=== PATIENT | female | born 1935 | race Caucasian/White ===

== ENCOUNTER 2018-04-15 15:19 | Inpatient (IN) | payer OTHER ==
[~2018-04-15] VITALS: Ht 170.2 cm; Wt 111.7 kg
[~2018-04-15 15:19] MED LIST changes: -OMEP20ER PO; +Prilosec Otc20 MG PO
[2018-04-15] MEDS ORDERED: SITA50T2 PO (16:24)
[2018-04-16 05:01] LABS: Albumin, Blood 2.2 g/dL (3.4-5.0); Albumin/Globulin Ratio 0.6 (0.8-1.8); Bilirubin, Total 0.2 mg/dL (0.1-1.0); Calcium, Blood 8.1 mg/dL (8.5-10.1); Creatinine, Blood 1.43 mg/dL (0.40-1.00); Globulin, Blood 3.5 g/dL (2.2-4.0); Potassium, Blood 4.6 mmol/L (3.5-5.5); Total Protein, Blood 5.7 g/dL (6.4-8.2); Troponin I 0.022 ng/mL (0.000-0.040)
[2018-04-16 05:25] LABS: Hematocrit 35.6 % (33.0-51.0); Hemoglobin 11.2 g/dL (11.5-16.0); Mean Corpuscular HGB 31.9 pg (26.0-34.0); Mean Corpuscular HGB Conc 31.5 g/dL (31.5-36.5); Mean Corpuscular Volume 101 fL (80-100); Mean Platelet Volume 9.9 fL (9.1-12.4); Platelet Count 203 K/mm3 (150-400); RDW Coefficient Variation 13.4 % (11.7-14.2); RDW Standard Deviation 50.3 fL (35.1-46.3); Red Blood Cell Count 3.51 M/mm3 (3.80-5.20); White Blood Cell Count 7.69 K/mm3 (4.00-11.30)
[2018-04-18 04:45] LABS: BASOPHILS ABSOLUTE AUTO 0.06 K/mm3 (0.00-0.23); BASOPHILS PERCENT AUTO 1 % (0-2); EOSINOPHILS ABSOLUTE AUTO 0.32 K/mm3 (0.00-0.68); EOSINOPHILS PERCENT AUTO 4 % (0-6); Hematocrit 36.2 % (33.0-51.0); Hemoglobin 11.2 g/dL (11.5-16.0); IMMATURE GRAN ABSOLUTE AUTO 0.02 K/mm3 (0.00-0.10); IMMATURE GRAN PERCENT AUTO 0 % (0-1); LYMPHOCYTES ABSOLUTE AUTO 1.03 K/mm3 (0.84-5.20); LYMPHOCYTES PERCENT AUTO 14 % (21-46); MONOCYTES ABSOLUTE AUTO 1.23 K/mm3 (0.16-1.47); MONOCYTES PERCENT AUTO 16 % (4-13); Mean Corpuscular HGB 30.4 pg (26.0-34.0); Mean Corpuscular HGB Conc 30.9 g/dL (31.5-36.5); Mean Platelet Volume 9.7 fL (9.1-12.4); NEUTROPHILS ABSOLUTE AUTO 4.84 K/mm3 (1.96-9.15); NEUTROPHILS PERCENT AUTO 65 % (41-73); Platelet Count 218 K/mm3 (150-400); RDW Coefficient Variation 13.2 % (11.7-14.2); RDW Standard Deviation 47.3 fL (35.1-46.3); Red Blood Cell Count 3.69 M/mm3 (3.80-5.20)
[2018-04-18 04:48] LABS: Mean Corpuscular Volume 98 fL (80-100)
[2018-04-18 04:59] LABS: Bun/Creatinine Ratio 11.5 (12.0-20.0); Calcium, Blood 8.7 mg/dL (8.5-10.1); Creatinine, Blood 1.56 mg/dL (0.40-1.00); Potassium, Blood 3.9 mmol/L (3.5-5.5)
[2018-04-19 04:13] LABS: Bun/Creatinine Ratio 13.6 (12.0-20.0); Calcium, Blood 8.5 mg/dL (8.5-10.1); Creatinine, Blood 1.47 mg/dL (0.40-1.00); Potassium, Blood 4.1 mmol/L (3.5-5.5)
[2018-04-19 04:40] LABS: BASOPHILS ABSOLUTE AUTO 0.07 K/mm3 (0.00-0.23); BASOPHILS PERCENT AUTO 1 % (0-2); EOSINOPHILS ABSOLUTE AUTO 0.37 K/mm3 (0.00-0.68); EOSINOPHILS PERCENT AUTO 5 % (0-6); Hematocrit 36.6 % (33.0-51.0); Hemoglobin 11.5 g/dL (11.5-16.0); IMMATURE GRAN ABSOLUTE AUTO 0.03 K/mm3 (0.00-0.10); IMMATURE GRAN PERCENT AUTO 0 % (0-1); LYMPHOCYTES ABSOLUTE AUTO 1.12 K/mm3 (0.84-5.20); LYMPHOCYTES PERCENT AUTO 14 % (21-46); MONOCYTES ABSOLUTE AUTO 1.17 K/mm3 (0.16-1.47); MONOCYTES PERCENT AUTO 15 % (4-13); Mean Corpuscular HGB 31.2 pg (26.0-34.0); Mean Corpuscular HGB Conc 31.4 g/dL (31.5-36.5); Mean Corpuscular Volume 99 fL (80-100); Mean Platelet Volume 9.5 fL (9.1-12.4); NEUTROPHILS ABSOLUTE AUTO 5.14 K/mm3 (1.96-9.15); NEUTROPHILS PERCENT AUTO 65 % (41-73); Platelet Count 225 K/mm3 (150-400); RDW Coefficient Variation 13.2 % (11.7-14.2); RDW Standard Deviation 48.1 fL (35.1-46.3); Red Blood Cell Count 3.69 M/mm3 (3.80-5.20)
[2018-04-20 05:17] LABS: BASOPHILS ABSOLUTE AUTO 0.08 K/mm3 (0.00-0.23); BASOPHILS PERCENT AUTO 1 % (0-2); EOSINOPHILS ABSOLUTE AUTO 0.48 K/mm3 (0.00-0.68); EOSINOPHILS PERCENT AUTO 5 % (0-6); Hematocrit 37.9 % (33.0-51.0); Hemoglobin 11.6 g/dL (11.5-16.0); IMMATURE GRAN ABSOLUTE AUTO 0.04 K/mm3 (0.00-0.10); IMMATURE GRAN PERCENT AUTO 0 % (0-1); LYMPHOCYTES ABSOLUTE AUTO 1.42 K/mm3 (0.84-5.20); LYMPHOCYTES PERCENT AUTO 15 % (21-46); MONOCYTES ABSOLUTE AUTO 1.39 K/mm3 (0.16-1.47); MONOCYTES PERCENT AUTO 15 % (4-13); Mean Corpuscular HGB 30.1 pg (26.0-34.0); Mean Corpuscular HGB Conc 30.6 g/dL (31.5-36.5); Mean Corpuscular Volume 98 fL (80-100); Mean Platelet Volume 9.9 fL (9.1-12.4); NEUTROPHILS ABSOLUTE AUTO 6.15 K/mm3 (1.96-9.15); NEUTROPHILS PERCENT AUTO 64 % (41-73); Platelet Count 243 K/mm3 (150-400); RDW Coefficient Variation 13.2 % (11.7-14.2); RDW Standard Deviation 47.1 fL (35.1-46.3); Red Blood Cell Count 3.86 M/mm3 (3.80-5.20); White Blood Cell Count 9.56 K/mm3 (4.00-11.30)
[2018-04-20] MEDS ORDERED: BUME2 PO (14:02)
[2018-04-20] MEDS ORDERED: HYDCHL25 PO (14:03)
== END 2018-04-20 14:13 | DRG 291 ==
LOC: MEDS 15:19
PROVIDERS: Family Medicine; Student in an Organized Health Care Education/Training Program
DX: I13.0 Hypertensive heart and chronic kidney disease with heart failure and stage 1 through stage 4 chronic kidney disease, or unspecified chronic kidney disease (principal); J12.9 Viral pneumonia, unspecified; J96.01 Acute respiratory failure with hypoxia; I50.33 Acute on chronic diastolic (congestive) heart failure; E66.01 Morbid (severe) obesity due to excess calories; E78.5 Hyperlipidemia, unspecified; E03.9 Hypothyroidism, unspecified; E11.40 Type 2 diabetes mellitus with diabetic neuropathy, unspecified; K21.9 Gastro-esophageal reflux disease without esophagitis; E11.22 Type 2 diabetes mellitus with diabetic chronic kidney disease; N18.3 Chronic kidney disease, stage 3 (moderate); G47.33 Obstructive sleep apnea (adult) (pediatric); Z68.38 Body mass index [BMI] 38.0-38.9, adult
CPT/HCPCS: 36415; 71045; 80048; 80053; 82947; 83880; 84145; 84484; 85025; 85027; 93005; 93010; 93306; 94760; 94761; 97161; A9270; G8978; G8979; G8980; J0360; J1650; J1815; J2543; J7030

== ENCOUNTER → 2018-04-15 | Outpatient (CLI) | payer OTHER ==
[~2018-04-15] MED LIST: AMLO10 PO; ASPI325 PO; Amaryl1 MG PO; Azor 5-20 MG T1 EACH PO; BENAML10/40 PO; CEFP200; CEFP200 PO; CEPH500 PO; CIPR250 PO; CLOB.05TO; CORGARD; CORGARD80 MG PO; DONE5 PO; DULO30 PO; DULO60 PO; ESCI10 PO; GABA300 PO; GLYB5 PO; HYDACE10B PO; HYDACE5 PO; HYDR1TAB94 PO; JANUMET XR 50-1 EAC1 PO; LAMO100 PO; LANS15EC PO; LEVSOD50 PO; LOSA50 PO; MIRT15ST MM; NADO40 PO; NYST100P; NYST100P TOP; Norco 10-325 T1 EACH PO; OMEP20ER PO; Pravachol40 MG PO; SACC250C PO; SIMV10 PO; SIMV40 PO; SITA50T2 PO; VICODIN 5-3001 EACH PO
[2018-04-15 13:27] LABS: BASOPHILS ABSOLUTE AUTO 0.08 K/mm3 (0.00-0.23); BASOPHILS PERCENT AUTO 1 % (0-2); EOSINOPHILS ABSOLUTE AUTO 0.32 K/mm3 (0.00-0.68); EOSINOPHILS PERCENT AUTO 3 % (0-6); Hemoglobin 12.3 g/dL (11.5-16.0); IMMATURE GRAN ABSOLUTE AUTO 0.04 K/mm3 (0.00-0.10); IMMATURE GRAN PERCENT AUTO 0 % (0-1); LYMPHOCYTES ABSOLUTE AUTO 1.24 K/mm3 (0.84-5.20); LYMPHOCYTES PERCENT AUTO 12 % (21-46); MONOCYTES ABSOLUTE AUTO 1.13 K/mm3 (0.16-1.47); MONOCYTES PERCENT AUTO 11 % (4-13); Mean Corpuscular HGB 31.3 pg (26.0-34.0); Mean Corpuscular HGB Conc 30.8 g/dL (31.5-36.5); Mean Corpuscular Volume 102 fL (80-100); NEUTROPHILS PERCENT AUTO 73 % (41-73); Platelet Count 279 K/mm3 (150-400); RDW Coefficient Variation 13.8 % (11.7-14.2); RDW Standard Deviation 51.9 fL (35.1-46.3); Red Blood Cell Count 3.93 M/mm3 (3.80-5.20); White Blood Cell Count 10.51 K/mm3 (4.00-11.30)
[2018-04-15 13:42] LABS: Alanine Aminotransfer (ALT/SGP 15 U/L (12-78); Albumin, Blood 2.7 g/dL (3.4-5.0); Albumin/Globulin Ratio 0.6 (0.8-1.8); Alk Phos 73 U/L (40-126); Anion Gap 5 mmol/L (6-16); Aspartate Aminotrans (AST/SGOT 20 U/L (12-37); Bilirubin, Total 0.2 mg/dL (0.1-1.0); Blood Urea Nitrogen 20 mg/dL (8-24); Bun/Creatinine Ratio 12.5 (12.0-20.0); CO2, Blood 32 mmol/L (21-32); Calcium, Blood 8.8 mg/dL (8.5-10.1); Chloride, Blood 105 mmol/L (98-108); Globulin, Blood 4.2 g/dL (2.2-4.0); Glomerular Filtration Rate 31 (60-); Glucose, Blood 122 mg/dL (70-99); Sodium, Blood 142 mmol/L (136-145); Total Protein, Blood 6.9 g/dL (6.4-8.2); Troponin I <0.017 ng/mL (0.000-0.040)
== END ==
LOC: LAB SHORT 13:23 → LAB EV 13:23
PROVIDERS: Family Medicine
DX: R06.02 Shortness of breath (principal)
CPT/HCPCS: 80053; 83880; 84484; 85025

== ENCOUNTER 2018-04-22 14:27 | Inpatient (IN) | payer OTHER ==
[~2018-04-22] VITALS: Ht 172.7 cm; Wt 109.0 kg
[~2018-04-22 14:27] MED LIST changes: +BUME2 PO; +HYDCHL25 PO
[2018-04-22] MEDS ORDERED: ASPI81CH PO (14:54)
[2018-04-22] MEDS ORDERED: Januvia50 MG PO (14:55)
[2018-04-22 16:22] LABS: Alanine Aminotransfer (ALT/SGP 28 U/L (12-78); Albumin, Blood 2.6 g/dL (3.4-5.0); Albumin/Globulin Ratio 0.7 (0.8-1.8); Alk Phos 60 U/L (50-136); Anion Gap 8 mmol/L (6-16); Aspartate Aminotrans (AST/SGOT 38 U/L (12-37); Bilirubin, Total 0.2 mg/dL (0.1-1.0); Blood Urea Nitrogen 49 mg/dL (8-24); Bun/Creatinine Ratio 14.8 (12.0-20.0); CO2, Blood 30 mmol/L (21-32); Calcium, Blood 7.8 mg/dL (8.5-10.1); Chloride, Blood 101 mmol/L (98-108); Creatinine, Blood 3.32 mg/dL (0.40-1.00); Globulin, Blood 3.6 g/dL (2.2-4.0); Glomerular Filtration Rate 14 (60-); Glucose, Blood 146 mg/dL (70-99); Potassium, Blood 3.8 mmol/L (3.5-5.5); Sodium, Blood 139 mmol/L (136-145); Total Protein, Blood 6.2 g/dL (6.4-8.2); Troponin I <0.015 ng/mL (0.000-0.040)
[2018-04-22 18:27] LABS: PCO2 Arterial 61.7 mmHg (35-45); PO2 Arterial 62.2 mmHg (80-100); pH Blood Arterial 7.38 (7.35-7.45)
[2018-04-22 18:44] LABS: BASOPHILS ABSOLUTE AUTO 0.05 K/mm3 (0.00-0.23); BASOPHILS PERCENT AUTO 0 % (0-2); EOSINOPHILS ABSOLUTE AUTO 0.12 K/mm3 (0.00-0.68); EOSINOPHILS PERCENT AUTO 1 % (0-6); Hematocrit 39.8 % (33.0-51.0); Hemoglobin 12.4 g/dL (11.5-16.0); IMMATURE GRAN ABSOLUTE AUTO 0.04 K/mm3 (0.00-0.10); IMMATURE GRAN PERCENT AUTO 0 % (0-1); LYMPHOCYTES ABSOLUTE AUTO 0.34 K/mm3 (0.84-5.20); LYMPHOCYTES PERCENT AUTO 2 % (21-46); MONOCYTES ABSOLUTE AUTO 0.39 K/mm3 (0.16-1.47); MONOCYTES PERCENT AUTO 2 % (4-13); Mean Corpuscular HGB 31.2 pg (26.0-34.0); Mean Corpuscular HGB Conc 31.2 g/dL (31.5-36.5); Mean Corpuscular Volume 100 fL (80-100); Mean Platelet Volume 10.5 fL (9.1-12.4); NEUTROPHILS PERCENT AUTO 95 % (41-73); Platelet Count 256 K/mm3 (150-400); RDW Coefficient Variation 13.3 % (11.7-14.2); RDW Standard Deviation 49.4 fL (35.1-46.3); Red Blood Cell Count 3.98 M/mm3 (3.80-5.20); White Blood Cell Count 16.64 K/mm3 (4.00-11.30)
[2018-04-23 04:23] LABS: Bun/Creatinine Ratio 16.8 (12.0-20.0); Calcium, Blood 7.7 mg/dL (8.5-10.1); Creatinine, Blood 3.51 mg/dL (0.40-1.00); Potassium, Blood 3.5 mmol/L (3.5-5.5)
[2018-04-24 04:29] LABS: Hematocrit 31.3 % (33.0-51.0); Hemoglobin 9.7 g/dL (11.5-16.0); Mean Corpuscular HGB 31.4 pg (26.0-34.0); Mean Corpuscular Volume 101 fL (80-100); Mean Platelet Volume 10.5 fL (9.1-12.4); Platelet Count 198 K/mm3 (150-400); RDW Coefficient Variation 13.9 % (11.7-14.2); RDW Standard Deviation 51.6 fL (35.1-46.3); Red Blood Cell Count 3.09 M/mm3 (3.80-5.20); White Blood Cell Count 14.47 K/mm3 (4.00-11.30)
[2018-04-24 04:47] LABS: Albumin, Blood 2.2 g/dL (3.4-5.0); Anion Gap 6 mmol/L (6-16); Blood Urea Nitrogen 73 mg/dL (8-24); CO2, Blood 32 mmol/L (21-32); Calcium, Blood 7.4 mg/dL (8.5-10.1); Chloride, Blood 104 mmol/L (98-108); Creatinine, Blood 5.61 mg/dL (0.40-1.00); Glomerular Filtration Rate 8 (60-); Glucose, Blood 130 mg/dL (70-99); Magnesium, Blood 2.3 mg/dL (1.6-2.4); Phosphorus, Blood 5.3 mg/dL (2.5-4.9); Potassium, Blood 3.4 mmol/L (3.5-5.5); Sodium, Blood 142 mmol/L (136-145)
[2018-04-24 21:46] LABS: Albumin, Blood 2.2 g/dL (3.4-5.0); Anion Gap 8 mmol/L (6-16); Blood Urea Nitrogen 73 mg/dL (8-24); CO2, Blood 29 mmol/L (21-32); Calcium, Blood 7.7 mg/dL (8.5-10.1); Chloride, Blood 104 mmol/L (98-108); Glomerular Filtration Rate 8 (60-); Glucose, Blood 141 mg/dL (70-99); Magnesium, Blood 2.3 mg/dL (1.6-2.4); Phosphorus, Blood 5.2 mg/dL (2.5-4.9); Potassium, Blood 3.4 mmol/L (3.5-5.5); Sodium, Blood 141 mmol/L (136-145)
[2018-04-25 04:02] LABS: Hematocrit 30.5 % (33.0-51.0); Hemoglobin 9.5 g/dL (11.5-16.0)
[2018-04-25 04:26] LABS: Alanine Aminotransfer (ALT/SGP 14 U/L (12-78); Albumin, Blood 2.2 g/dL (3.4-5.0); Albumin/Globulin Ratio 0.7 (0.8-1.8); Alk Phos 52 U/L (50-136); Anion Gap 8 mmol/L (6-16); Aspartate Aminotrans (AST/SGOT 16 U/L (12-37); Bilirubin, Direct <0.1 mg/dL (0.0-0.3); Bilirubin, Indirect Unable to Calculate mg/dL (0.1-0.7); Bilirubin, Total 0.2 mg/dL (0.1-1.0); Blood Urea Nitrogen 76 mg/dL (8-24); Bun/Creatinine Ratio 13.7 (12.0-20.0); CO2, Blood 29 mmol/L (21-32); CPK Creatine Kinase 30 U/L (26-193); Calcium, Blood 7.7 mg/dL (8.5-10.1); Chloride, Blood 104 mmol/L (98-108); Creatinine, Blood 5.55 mg/dL (0.40-1.00); Globulin, Blood 3.3 g/dL (2.2-4.0); Glomerular Filtration Rate 8 (60-); Glucose, Blood 101 mg/dL (70-99); Magnesium, Blood 2.3 mg/dL (1.6-2.4); Potassium, Blood 3.3 mmol/L (3.5-5.5); Sodium, Blood 141 mmol/L (136-145); Total Protein, Blood 5.5 g/dL (6.4-8.2); Uric Acid, Blood 8.3 mg/dL (2.6-6.0)
[2018-04-25 23:45] LABS: Source, Urine Catheter
[2018-04-25 23:48] LABS: Bilirubin, Urine Neg (Neg); Blood, Urine 1+ (Neg); Glucose Qualitative, Urine Neg (Neg); Ketones, Urine Neg (Neg); Leukocyte Esterase, Urine 3+ (Neg); Nitrite, Urine Neg (Neg); Protein, Urine 2+ (Neg); Urobilinogen, Urine NORM (Normal)
[2018-04-25 23:52] LABS: Appearance, Urine Hazy (Clear); Color, Urine Pale Yellow (P-Yellow)
[2018-04-25 23:59] LABS: Amorphous Light (0-Heavy); Bacteria Few /hpf; Red Blood Cells, Urine 0-2 /hpf (0-2); Squamous Epithelial Cells Few /hpf (Few); White Blood Cells, Urine 25-50 /hpf (0-5)
[2018-04-26 05:46] LABS: Hemoglobin 9.9 g/dL (11.5-16.0); Mean Corpuscular HGB 31.7 pg (26.0-34.0); Mean Corpuscular HGB Conc 31.9 g/dL (31.5-36.5); Mean Corpuscular Volume 99 fL (80-100); Mean Platelet Volume 10.5 fL (9.1-12.4); Platelet Count 190 K/mm3 (150-400); RDW Coefficient Variation 13.2 % (11.7-14.2); RDW Standard Deviation 47.9 fL (35.1-46.3); Red Blood Cell Count 3.12 M/mm3 (3.80-5.20); White Blood Cell Count 10.25 K/mm3 (4.00-11.30)
[2018-04-26 06:03] LABS: Albumin, Blood 2.2 g/dL (3.4-5.0); Anion Gap 5 mmol/L (6-16); Blood Urea Nitrogen 71 mg/dL (8-24); Bun/Creatinine Ratio 14.1 (12.0-20.0); CO2, Blood 28 mmol/L (21-32); Calcium, Blood 7.9 mg/dL (8.5-10.1); Chloride, Blood 109 mmol/L (98-108); Creatinine, Blood 5.04 mg/dL (0.40-1.00); Glomerular Filtration Rate 9 (60-); Glucose, Blood 101 mg/dL (70-99); Magnesium, Blood 2.5 mg/dL (1.6-2.4); Phosphorus, Blood 4.4 mg/dL (2.5-4.9); Potassium, Blood 3.5 mmol/L (3.5-5.5); Sodium, Blood 142 mmol/L (136-145)
[2018-04-26 20:02] LABS: Source, Urine Clean Catch
[2018-04-26 20:08] LABS: Appearance, Urine Hazy (Clear); Bilirubin, Urine Neg (Neg); Blood, Urine 1+ (Neg); Color, Urine Yellow (P-Yellow); Glucose Qualitative, Urine Neg (Neg); Ketones, Urine Neg (Neg); Leukocyte Esterase, Urine 3+ (Neg); Nitrite, Urine Neg (Neg); Protein, Urine 2+ (Neg); Specific Gravity, Urine 1.015 (1.003-1.022); Urobilinogen, Urine NORM (Normal)
[2018-04-26 20:22] LABS: Squamous Epithelial Cells Rare /hpf (Few); White Blood Cells, Urine 25-50 /hpf (0-5)
[2018-04-26 20:23] LABS: Bacteria Rare /hpf; Yeast/Fungi Urine Rare /hpf
[2018-04-27 06:07] LABS: Hematocrit 33.5 % (33.0-51.0); Hemoglobin 10.6 g/dL (11.5-16.0)
[2018-04-27 06:26] LABS: Albumin, Blood 2.4 g/dL (3.4-5.0); Anion Gap 7 mmol/L (6-16); Blood Urea Nitrogen 62 mg/dL (8-24); Bun/Creatinine Ratio 14.9 (12.0-20.0); CO2, Blood 26 mmol/L (21-32); Calcium, Blood 8.6 mg/dL (8.5-10.1); Chloride, Blood 110 mmol/L (98-108); Creatinine, Blood 4.15 mg/dL (0.40-1.00); Glomerular Filtration Rate 11 (60-); Glucose, Blood 111 mg/dL (70-99); Magnesium, Blood 2.5 mg/dL (1.6-2.4); Phosphorus, Blood 3.8 mg/dL (2.5-4.9); Potassium, Blood 3.6 mmol/L (3.5-5.5); Sodium, Blood 143 mmol/L (136-145)
[2018-04-28 04:34] LABS: BASOPHILS ABSOLUTE AUTO 0.07 K/mm3 (0.00-0.23); BASOPHILS PERCENT AUTO 1 % (0-2); EOSINOPHILS ABSOLUTE AUTO 0.43 K/mm3 (0.00-0.68); EOSINOPHILS PERCENT AUTO 5 % (0-6); Hematocrit 31.9 % (33.0-51.0); Hemoglobin 9.9 g/dL (11.5-16.0); IMMATURE GRAN PERCENT AUTO 2 % (0-1); LYMPHOCYTES ABSOLUTE AUTO 1.53 K/mm3 (0.84-5.20); LYMPHOCYTES PERCENT AUTO 16 % (21-46); MONOCYTES ABSOLUTE AUTO 1.03 K/mm3 (0.16-1.47); MONOCYTES PERCENT AUTO 11 % (4-13); Mean Corpuscular HGB 29.9 pg (26.0-34.0); Mean Platelet Volume 10.4 fL (9.1-12.4); NEUTROPHILS ABSOLUTE AUTO 6.11 K/mm3 (1.96-9.15); NEUTROPHILS PERCENT AUTO 65 % (41-73); Platelet Count 239 K/mm3 (150-400); RDW Coefficient Variation 13.1 % (11.7-14.2); RDW Standard Deviation 46.5 fL (35.1-46.3); Red Blood Cell Count 3.31 M/mm3 (3.80-5.20); White Blood Cell Count 9.37 K/mm3 (4.00-11.30)
[2018-04-28 04:53] LABS: Mean Corpuscular Volume 96 fL (80-100)
[2018-04-28 04:54] LABS: Alanine Aminotransfer (ALT/SGP 17 U/L (12-78); Albumin, Blood 2.2 g/dL (3.4-5.0); Albumin/Globulin Ratio 0.7 (0.8-1.8); Alk Phos 43 U/L (50-136); Anion Gap 5 mmol/L (6-16); Aspartate Aminotrans (AST/SGOT 17 U/L (12-37); Bilirubin, Total 0.2 mg/dL (0.1-1.0); Blood Urea Nitrogen 54 mg/dL (8-24); Bun/Creatinine Ratio 14.9 (12.0-20.0); CO2, Blood 29 mmol/L (21-32); Calcium, Blood 8.1 mg/dL (8.5-10.1); Chloride, Blood 112 mmol/L (98-108); Creatinine, Blood 3.63 mg/dL (0.40-1.00); Globulin, Blood 3.3 g/dL (2.2-4.0); Glomerular Filtration Rate 13 (60-); Glucose, Blood 106 mg/dL (70-99); Magnesium, Blood 2.4 mg/dL (1.6-2.4); Phosphorus, Blood 3.2 mg/dL (2.5-4.9); Potassium, Blood 3.6 mmol/L (3.5-5.5); Sodium, Blood 146 mmol/L (136-145); Total Protein, Blood 5.5 g/dL (6.4-8.2)
[2018-04-29 04:59] LABS: Hematocrit 32.7 % (33.0-51.0); Hemoglobin 10.3 g/dL (11.5-16.0)
[2018-04-29 05:14] LABS: Albumin, Blood 2.4 g/dL (3.4-5.0); Anion Gap 7 mmol/L (6-16); Blood Urea Nitrogen 53 mg/dL (8-24); Bun/Creatinine Ratio 16.4 (12.0-20.0); CO2, Blood 29 mmol/L (21-32); Calcium, Blood 8.2 mg/dL (8.5-10.1); Chloride, Blood 111 mmol/L (98-108); Creatinine, Blood 3.24 mg/dL (0.40-1.00); Glomerular Filtration Rate 15 (60-); Glucose, Blood 136 mg/dL (70-99); Magnesium, Blood 2.4 mg/dL (1.6-2.4); Potassium, Blood 3.6 mmol/L (3.5-5.5); Sodium, Blood 147 mmol/L (136-145)
[2018-04-29 08:02] LABS: Protein, Urine Quantitative 53.2 mg/dL (0.0-11.9)
[2018-04-30 04:55] LABS: BASOPHILS ABSOLUTE AUTO 0.08 K/mm3 (0.00-0.23); BASOPHILS PERCENT AUTO 1 % (0-2); EOSINOPHILS ABSOLUTE AUTO 0.54 K/mm3 (0.00-0.68); EOSINOPHILS PERCENT AUTO 4 % (0-6); Hematocrit 34.5 % (33.0-51.0); IMMATURE GRAN ABSOLUTE AUTO 0.39 K/mm3 (0.00-0.10); IMMATURE GRAN PERCENT AUTO 3 % (0-1); LYMPHOCYTES PERCENT AUTO 14 % (21-46); MONOCYTES PERCENT AUTO 10 % (4-13); Mean Corpuscular HGB 30.8 pg (26.0-34.0); Mean Corpuscular HGB Conc 31.9 g/dL (31.5-36.5); Mean Corpuscular Volume 97 fL (80-100); Mean Platelet Volume 10.2 fL (9.1-12.4); NEUTROPHILS PERCENT AUTO 68 % (41-73); Platelet Count 289 K/mm3 (150-400); RDW Coefficient Variation 13.4 % (11.7-14.2); RDW Standard Deviation 48.3 fL (35.1-46.3); Red Blood Cell Count 3.57 M/mm3 (3.80-5.20); White Blood Cell Count 12.71 K/mm3 (4.00-11.30)
[2018-04-30 05:23] LABS: Albumin, Blood 2.7 g/dL (3.4-5.0); Anion Gap 7 mmol/L (6-16); Blood Urea Nitrogen 42 mg/dL (8-24); CO2, Blood 28 mmol/L (21-32); Calcium, Blood 8.7 mg/dL (8.5-10.1); Chloride, Blood 108 mmol/L (98-108); Creatinine, Blood 2.62 mg/dL (0.40-1.00); Glomerular Filtration Rate 19 (60-); Glucose, Blood 142 mg/dL (70-99); Magnesium, Blood 2.3 mg/dL (1.6-2.4); Phosphorus, Blood 2.5 mg/dL (2.5-4.9); Potassium, Blood 3.3 mmol/L (3.5-5.5); Sodium, Blood 143 mmol/L (136-145)
[2018-04-30 14:11] LABS: A/G RATIO 1.5 (0.7-1.7); ALBUMIN 2.9 g/dL (2.9-4.4); ALPHA-1-GLOBULIN 0.2 g/dL (0.0-0.4); ALPHA-2-GLOBULIN 0.7 g/dL (0.4-1.0); BETA GLOBULIN 0.6 g/dL (0.7-1.3); GAMMA GLOBULIN 0.5 g/dL (0.4-1.8); IMMUNOGLOBULIN A, QN, SERUM 119 mg/dL (64-422); IMMUNOGLOBULIN G, QN, SERUM 577 mg/dL (700-1600); IMMUNOGLOBULIN M, QN, SERUM 112 mg/dL (26-217); M-SPIKE Not Observed g/dL (Not Observed); PROTEIN, TOTAL, SERUM 4.9 g/dL (6.0-8.5)
[2018-05-01 04:38] LABS: BASOPHILS ABSOLUTE AUTO 0.09 K/mm3 (0.00-0.23); BASOPHILS PERCENT AUTO 1 % (0-2); EOSINOPHILS ABSOLUTE AUTO 0.47 K/mm3 (0.00-0.68); EOSINOPHILS PERCENT AUTO 5 % (0-6); Hematocrit 33.8 % (33.0-51.0); Hemoglobin 10.9 g/dL (11.5-16.0); IMMATURE GRAN ABSOLUTE AUTO 0.42 K/mm3 (0.00-0.10); IMMATURE GRAN PERCENT AUTO 4 % (0-1); LYMPHOCYTES ABSOLUTE AUTO 1.55 K/mm3 (0.84-5.20); LYMPHOCYTES PERCENT AUTO 16 % (21-46); MONOCYTES ABSOLUTE AUTO 1.03 K/mm3 (0.16-1.47); MONOCYTES PERCENT AUTO 11 % (4-13); Mean Corpuscular HGB 30.9 pg (26.0-34.0); Mean Corpuscular HGB Conc 32.2 g/dL (31.5-36.5); Mean Corpuscular Volume 96 fL (80-100); Mean Platelet Volume 9.9 fL (9.1-12.4); NEUTROPHILS ABSOLUTE AUTO 6.11 K/mm3 (1.96-9.15); NEUTROPHILS PERCENT AUTO 63 % (41-73); Platelet Count 308 K/mm3 (150-400); RDW Coefficient Variation 13.8 % (11.7-14.2); Red Blood Cell Count 3.53 M/mm3 (3.80-5.20); White Blood Cell Count 9.67 K/mm3 (4.00-11.30)
[2018-05-01 05:00] LABS: Alanine Aminotransfer (ALT/SGP 17 U/L (12-78); Albumin, Blood 2.6 g/dL (3.4-5.0); Albumin/Globulin Ratio 0.7 (0.8-1.8); Alk Phos 51 U/L (50-136); Anion Gap 5 mmol/L (6-16); Aspartate Aminotrans (AST/SGOT 21 U/L (12-37); Bilirubin, Total 0.3 mg/dL (0.1-1.0); Blood Urea Nitrogen 33 mg/dL (8-24); Bun/Creatinine Ratio 14.3 (12.0-20.0); CO2, Blood 29 mmol/L (21-32); Calcium, Blood 8.5 mg/dL (8.5-10.1); Chloride, Blood 109 mmol/L (98-108); Globulin, Blood 3.5 g/dL (2.2-4.0); Glomerular Filtration Rate 22 (60-); Glucose, Blood 134 mg/dL (70-99); Magnesium, Blood 2.2 mg/dL (1.6-2.4); Phosphorus, Blood 2.6 mg/dL (2.5-4.9); Potassium, Blood 3.5 mmol/L (3.5-5.5); Sodium, Blood 143 mmol/L (136-145); Total Protein, Blood 6.1 g/dL (6.4-8.2)
[2018-05-01 07:10] LABS: ANTIGLOMERULAR BM AB 10 units (0-20)
[2018-05-02 06:36] LABS: Albumin, Blood 2.7 g/dL (3.4-5.0); Anion Gap 9 mmol/L (6-16); Blood Urea Nitrogen 26 mg/dL (8-24); Bun/Creatinine Ratio 13.1 (12.0-20.0); CO2, Blood 24 mmol/L (21-32); Calcium, Blood 8.5 mg/dL (8.5-10.1); Chloride, Blood 113 mmol/L (98-108); Creatinine, Blood 1.98 mg/dL (0.40-1.00); Glomerular Filtration Rate 26 (60-); Glucose, Blood 140 mg/dL (70-99); Magnesium, Blood 2.1 mg/dL (1.6-2.4); Phosphorus, Blood 3.4 mg/dL (2.5-4.9); Potassium, Blood 4.6 mmol/L (3.5-5.5); Sodium, Blood 146 mmol/L (136-145)
[2018-05-02 07:14] LABS: Hematocrit 36.2 % (33.0-51.0); Hemoglobin 11.3 g/dL (11.5-16.0)
[2018-05-03 05:41] LABS: Hematocrit 33.3 % (33.0-51.0); Hemoglobin 10.3 g/dL (11.5-16.0)
[2018-05-03 06:04] LABS: Albumin, Blood 2.6 g/dL (3.4-5.0); Anion Gap 6 mmol/L (6-16); Blood Urea Nitrogen 23 mg/dL (8-24); Bun/Creatinine Ratio 10.7 (12.0-20.0); CO2, Blood 27 mmol/L (21-32); Calcium, Blood 8.7 mg/dL (8.5-10.1); Chloride, Blood 114 mmol/L (98-108); Creatinine, Blood 2.15 mg/dL (0.40-1.00); Glomerular Filtration Rate 23 (60-); Glucose, Blood 131 mg/dL (70-99); Magnesium, Blood 2.1 mg/dL (1.6-2.4); Phosphorus, Blood 4.4 mg/dL (2.5-4.9); Sodium, Blood 147 mmol/L (136-145)
[2018-05-04 06:16] LABS: Hematocrit 31.8 % (33.0-51.0); Hemoglobin 9.8 g/dL (11.5-16.0)
[2018-05-04 06:41] LABS: Albumin, Blood 2.6 g/dL (3.4-5.0); Anion Gap 6 mmol/L (6-16); Blood Urea Nitrogen 23 mg/dL (8-24); CO2, Blood 30 mmol/L (21-32); Calcium, Blood 8.5 mg/dL (8.5-10.1); Chloride, Blood 113 mmol/L (98-108); Glomerular Filtration Rate 22 (60-); Glucose, Blood 143 mg/dL (70-99); Phosphorus, Blood 4.1 mg/dL (2.5-4.9); Potassium, Blood 3.7 mmol/L (3.5-5.5); Sodium, Blood 149 mmol/L (136-145)
[2018-05-04 19:41] LABS: Protein, Urine Quantitative 95.7 mg/dL (0.0-11.9)
[2018-05-05 05:04] LABS: Hematocrit 31.9 % (33.0-51.0); Hemoglobin 9.8 g/dL (11.5-16.0)
[2018-05-05 05:24] LABS: Albumin, Blood 2.6 g/dL (3.4-5.0); Anion Gap 4 mmol/L (6-16); Blood Urea Nitrogen 22 mg/dL (8-24); Bun/Creatinine Ratio 9.9 (12.0-20.0); CO2, Blood 33 mmol/L (21-32); Calcium, Blood 8.4 mg/dL (8.5-10.1); Chloride, Blood 112 mmol/L (98-108); Creatinine, Blood 2.23 mg/dL (0.40-1.00); Glomerular Filtration Rate 22 (60-); Glucose, Blood 143 mg/dL (70-99); Magnesium, Blood 2.2 mg/dL (1.6-2.4); Phosphorus, Blood 4.1 mg/dL (2.5-4.9); Potassium, Blood 3.8 mmol/L (3.5-5.5); Sodium, Blood 149 mmol/L (136-145)
[2018-05-06 05:51] LABS: Hematocrit 33.3 % (33.0-51.0); Hemoglobin 10.1 g/dL (11.5-16.0)
[2018-05-06 06:12] LABS: Albumin, Blood 2.7 g/dL (3.4-5.0); Anion Gap 4 mmol/L (6-16); Blood Urea Nitrogen 22 mg/dL (8-24); Bun/Creatinine Ratio 9.4 (12.0-20.0); CO2, Blood 33 mmol/L (21-32); Calcium, Blood 8.6 mg/dL (8.5-10.1); Chloride, Blood 111 mmol/L (98-108); Creatinine, Blood 2.34 mg/dL (0.40-1.00); Glomerular Filtration Rate 21 (60-); Glucose, Blood 144 mg/dL (70-99); Magnesium, Blood 2.3 mg/dL (1.6-2.4); Phosphorus, Blood 3.9 mg/dL (2.5-4.9); Potassium, Blood 3.8 mmol/L (3.5-5.5); Sodium, Blood 148 mmol/L (136-145)
[2018-05-06 13:07] LABS: ANA DIRECT Negative (Negative); ANTIMYELOPEROXIDASE (MPO) ABS <9.0 U/mL (0.0-9.0); ANTIPROTEINASE 3 (PR-3) ABS <3.5 U/mL (0.0-3.5); ATYPICAL PANCA <1:20 titer (Neg:<1:20); CYTOPLASMIC (C-ANCA) <1:20 titer (Neg:<1:20); PERINUCLEAR (P-ANCA) <1:20 titer (Neg:<1:20)
[2018-05-06 15:06] LABS: M-SPIKE, % Not Observed % (Not Observed); PROTEIN,TOTAL,URINE 88.8 mg/dL (Not Estab.)
[2018-05-07 04:59] LABS: Hemoglobin 9.9 g/dL (11.5-16.0)
[2018-05-07 05:15] LABS: Albumin, Blood 2.7 g/dL (3.4-5.0); Anion Gap 5 mmol/L (6-16); Blood Urea Nitrogen 25 mg/dL (8-24); Bun/Creatinine Ratio 10.3 (12.0-20.0); CO2, Blood 33 mmol/L (21-32); Calcium, Blood 8.4 mg/dL (8.5-10.1); Chloride, Blood 110 mmol/L (98-108); Creatinine, Blood 2.43 mg/dL (0.40-1.00); Glomerular Filtration Rate 20 (60-); Glucose, Blood 142 mg/dL (70-99); Magnesium, Blood 2.5 mg/dL (1.6-2.4); Phosphorus, Blood 3.8 mg/dL (2.5-4.9); Potassium, Blood 3.9 mmol/L (3.5-5.5); Sodium, Blood 148 mmol/L (136-145)
[2018-05-07 08:17] LABS: ALDOS/RENIN RATIO <2.2 (0.0-30.0); ALDOSTERONE <1.0 ng/dL (0.0-30.0)
[2018-05-08 05:28] LABS: Hemoglobin 10.3 g/dL (11.5-16.0)
[2018-05-08 05:46] LABS: Albumin, Blood 2.7 g/dL (3.4-5.0); Anion Gap 5 mmol/L (6-16); Blood Urea Nitrogen 28 mg/dL (8-24); Bun/Creatinine Ratio 12.2 (12.0-20.0); CO2, Blood 34 mmol/L (21-32); Calcium, Blood 8.4 mg/dL (8.5-10.1); Chloride, Blood 109 mmol/L (98-108); Creatinine, Blood 2.29 mg/dL (0.40-1.00); Glomerular Filtration Rate 22 (60-); Glucose, Blood 151 mg/dL (70-99); Magnesium, Blood 2.5 mg/dL (1.6-2.4); Phosphorus, Blood 3.3 mg/dL (2.5-4.9); Potassium, Blood 3.7 mmol/L (3.5-5.5); Sodium, Blood 148 mmol/L (136-145)
[2018-05-08 18:07] LABS: METANEPHRINE, UR 53 ug/L (Undefined); NORMETANEPHRINE, UR 328 ug/L (Undefined)
[2018-05-09 06:04] LABS: BASOPHILS PERCENT AUTO 1 % (0-2); EOSINOPHILS ABSOLUTE AUTO 0.23 K/mm3 (0.00-0.68); EOSINOPHILS PERCENT AUTO 2 % (0-6); Hematocrit 36.1 % (33.0-51.0); Hemoglobin 11.5 g/dL (11.5-16.0); IMMATURE GRAN ABSOLUTE AUTO 0.03 K/mm3 (0.00-0.10); IMMATURE GRAN PERCENT AUTO 0 % (0-1); LYMPHOCYTES ABSOLUTE AUTO 1.25 K/mm3 (0.84-5.20); LYMPHOCYTES PERCENT AUTO 10 % (21-46); MONOCYTES ABSOLUTE AUTO 0.98 K/mm3 (0.16-1.47); MONOCYTES PERCENT AUTO 8 % (4-13); Mean Corpuscular HGB 31.8 pg (26.0-34.0); Mean Corpuscular HGB Conc 31.9 g/dL (31.5-36.5); Mean Platelet Volume 10.7 fL (9.1-12.4); NEUTROPHILS ABSOLUTE AUTO 9.97 K/mm3 (1.96-9.15); NEUTROPHILS PERCENT AUTO 79 % (41-73); Platelet Count 202 K/mm3 (150-400); RDW Coefficient Variation 14.4 % (11.7-14.2); RDW Standard Deviation 52.1 fL (35.1-46.3); Red Blood Cell Count 3.62 M/mm3 (3.80-5.20); White Blood Cell Count 12.56 K/mm3 (4.00-11.30)
[2018-05-09 06:08] LABS: Mean Corpuscular Volume 100 fL (80-100)
[2018-05-09 06:15] LABS: Alanine Aminotransfer (ALT/SGP 15 U/L (12-78); Albumin, Blood 2.9 g/dL (3.4-5.0); Albumin/Globulin Ratio 0.8 (0.8-1.8); Alk Phos 61 U/L (50-136); Anion Gap 5 mmol/L (6-16); Aspartate Aminotrans (AST/SGOT 16 U/L (12-37); Bilirubin, Total 0.2 mg/dL (0.1-1.0); Blood Urea Nitrogen 26 mg/dL (8-24); Bun/Creatinine Ratio 11.9 (12.0-20.0); CO2, Blood 34 mmol/L (21-32); Calcium, Blood 8.7 mg/dL (8.5-10.1); Chloride, Blood 107 mmol/L (98-108); Creatinine, Blood 2.18 mg/dL (0.40-1.00); Globulin, Blood 3.6 g/dL (2.2-4.0); Glomerular Filtration Rate 23 (60-); Glucose, Blood 181 mg/dL (70-99); Magnesium, Blood 2.5 mg/dL (1.6-2.4); Phosphorus, Blood 3.3 mg/dL (2.5-4.9); Potassium, Blood 3.4 mmol/L (3.5-5.5); Sodium, Blood 146 mmol/L (136-145); Total Protein, Blood 6.5 g/dL (6.4-8.2); Triglycerides 103 mg/dL (30-160)
[2018-05-09 09:09] LABS: CREATININE, URINE 25.4 mg/dL (Not Estab.)
[2018-05-10 05:51] LABS: Hematocrit 34.9 % (33.0-51.0)
[2018-05-10 06:14] LABS: Albumin, Blood 2.8 g/dL (3.4-5.0); Anion Gap 8 mmol/L (6-16); Blood Urea Nitrogen 24 mg/dL (8-24); Bun/Creatinine Ratio 11.7 (12.0-20.0); CO2, Blood 33 mmol/L (21-32); Calcium, Blood 8.7 mg/dL (8.5-10.1); Chloride, Blood 105 mmol/L (98-108); Creatinine, Blood 2.05 mg/dL (0.40-1.00); Glomerular Filtration Rate 25 (60-); Glucose, Blood 177 mg/dL (70-99); Magnesium, Blood 2.6 mg/dL (1.6-2.4); Phosphorus, Blood 3.2 mg/dL (2.5-4.9); Potassium, Blood 3.5 mmol/L (3.5-5.5); Sodium, Blood 146 mmol/L (136-145)
[2018-05-11 04:33] LABS: Hematocrit 29.5 % (33.0-51.0); Hemoglobin 9.1 g/dL (11.5-16.0)
[2018-05-11 04:50] LABS: Albumin, Blood 2.6 g/dL (3.4-5.0); Anion Gap 5 mmol/L (6-16); Blood Urea Nitrogen 26 mg/dL (8-24); Bun/Creatinine Ratio 12.4 (12.0-20.0); CO2, Blood 36 mmol/L (21-32); Calcium, Blood 8.4 mg/dL (8.5-10.1); Chloride, Blood 104 mmol/L (98-108); Creatinine, Blood 2.09 mg/dL (0.40-1.00); Glomerular Filtration Rate 24 (60-); Glucose, Blood 143 mg/dL (70-99); Magnesium, Blood 2.6 mg/dL (1.6-2.4); Phosphorus, Blood 3.5 mg/dL (2.5-4.9); Potassium, Blood 3.4 mmol/L (3.5-5.5); Sodium, Blood 145 mmol/L (136-145)
[2018-05-12 04:51] LABS: Hematocrit 27.6 % (33.0-51.0); Hemoglobin 8.7 g/dL (11.5-16.0)
[2018-05-12 05:20] LABS: Albumin, Blood 2.4 g/dL (3.4-5.0); Anion Gap 7 mmol/L (6-16); Blood Urea Nitrogen 29 mg/dL (8-24); Bun/Creatinine Ratio 12.8 (12.0-20.0); CO2, Blood 33 mmol/L (21-32); Calcium, Blood 8.2 mg/dL (8.5-10.1); Chloride, Blood 100 mmol/L (98-108); Creatinine, Blood 2.26 mg/dL (0.40-1.00); Glomerular Filtration Rate 22 (60-); Glucose, Blood 143 mg/dL (70-99); Magnesium, Blood 2.5 mg/dL (1.6-2.4); Phosphorus, Blood 3.5 mg/dL (2.5-4.9); Potassium, Blood 3.4 mmol/L (3.5-5.5); Sodium, Blood 140 mmol/L (136-145)
[2018-05-13 04:27] LABS: Hematocrit 27.2 % (33.0-51.0); Hemoglobin 8.6 g/dL (11.5-16.0)
[2018-05-13 04:47] LABS: Albumin, Blood 2.4 g/dL (3.4-5.0); Anion Gap 7 mmol/L (6-16); Blood Urea Nitrogen 34 mg/dL (8-24); CO2, Blood 32 mmol/L (21-32); Calcium, Blood 8.1 mg/dL (8.5-10.1); Chloride, Blood 99 mmol/L (98-108); Creatinine, Blood 2.62 mg/dL (0.40-1.00); Glomerular Filtration Rate 19 (60-); Glucose, Blood 160 mg/dL (70-99); Magnesium, Blood 2.7 mg/dL (1.6-2.4); Phosphorus, Blood 4.1 mg/dL (2.5-4.9); Potassium, Blood 3.7 mmol/L (3.5-5.5); Sodium, Blood 138 mmol/L (136-145)
[2018-05-13] MEDS ORDERED: CLON.3TP TD (13:02)
[2018-05-13] MEDS ORDERED: ACET325 PO (13:03)
[2018-05-13] MEDS ORDERED: HYDRA50 PO (13:04)
[2018-05-13] MEDS ORDERED: Aranesp40 MCG/0.4 INJ (13:05)
[2018-05-13] MEDS ORDERED: LOPE2C PO (13:05)
[2018-05-13] MEDS ORDERED: ISODIN20 PO (13:06)
[2018-05-13] MEDS ORDERED: POTA20LUD PO (13:07)
[2018-05-13] MEDS ORDERED: [UNRECOGNIZED DRUG - OTHER] PT (13:08)
== END 2018-05-13 13:14 | disposition home or self-care (01) | DRG 177 ==
LOC: ER 14:27 → MEDS 18:15 → PCU 18:15 → MEDS 04-24 16:41 → PCU 05-08 16:13
PROVIDERS: Internal Medicine; Internal Medicine Endocrinology, Diabetes & Metabolism; Internal Medicine Nephrology; Student in an Organized Health Care Education/Training Program
PROC: 0DH63UZ Insertion of Feeding Device into Stomach, Percutaneous Approach (ICD-10-PCS; 2018-05-08)
PROC: 0DJ08ZZ Inspection of Upper Intestinal Tract, Via Natural or Artificial Opening Endoscopic (ICD-10-PCS; principal; 2018-05-08 08:15)
DX: J69.0 Pneumonitis due to inhalation of food and vomit (principal); J96.21 Acute and chronic respiratory failure with hypoxia; I50.33 Acute on chronic diastolic (congestive) heart failure; E87.2 Acidosis; I13.0 Hypertensive heart and chronic kidney disease with heart failure and stage 1 through stage 4 chronic kidney disease, or unspecified chronic kidney disease; N17.9 Acute kidney failure, unspecified; Z68.41 Body mass index [BMI] 40.0-44.9, adult; I69.354 Hemiplegia and hemiparesis following cerebral infarction affecting left non-dominant side; F31.81 Bipolar II disorder; E87.0 Hyperosmolality and hypernatremia; J15.9 Unspecified bacterial pneumonia; J15.8 Pneumonia due to other specified bacteria; G47.33 Obstructive sleep apnea (adult) (pediatric); E11.22 Type 2 diabetes mellitus with diabetic chronic kidney disease; E11.65 Type 2 diabetes mellitus with hyperglycemia; N18.3 Chronic kidney disease, stage 3 (moderate); I50.9 Heart failure, unspecified; M79.7 Fibromyalgia; K21.9 Gastro-esophageal reflux disease without esophagitis; E03.9 Hypothyroidism, unspecified; Q07.00 Arnold-Chiari syndrome without spina bifida or hydrocephalus; D63.1 Anemia in chronic kidney disease; Y95 Nosocomial condition; F03.90 Unspecified dementia, unspecified severity, without behavioral disturbance, psychotic disturbance, mood disturbance, and anxiety; Z87.440 Personal history of urinary (tract) infections; N28.89 Other specified disorders of kidney and ureter; E11.42 Type 2 diabetes mellitus with diabetic polyneuropathy; I69.920 Aphasia following unspecified cerebrovascular disease; N28.1 Cyst of kidney, acquired
CPT/HCPCS: 36415; 36416; 36600; 71046; 74176; 74230; 76770; 80048; 80053; 80069; 81001; 81050; 82088; 82248; 82530; 82550; 82570; 82784; 82803; 82947; 83516; 83520; 83605; 83735; 83835; 83880; 84100; 84145; 84156; 84165; 84166; 84244; 84443; 84478; 84484; 84550; 84585; 85014; 85018; 85025; 85027; 86038; 86256; 86334; 86335; 87040; 87086; 87493; 92526; 92610; 92611; 93005; 93010; 93975; 96365; 96367; 97110; 97116; 97162; 97530; 99285-25; C1769; G8978; G8979; G8996; G8997; G8998; J0360; J0456; J0690; J0881; J1650; J1940; J2543; J3480; J7030; J7050; J7120; P9041

== ENCOUNTER → 2018-09-10 | Outpatient (CLI) | payer OTHER ==
[~2018-09-10] MED LIST changes: +ACET325 PO; +ASPI81CH PO; +Aranesp40 MCG/0.4 INJ; +CLON.3TP TD; +HYDRA50 PO; +ISODIN20 PO; +Januvia50 MG PO; +LOPE2C PO; +POTA20LUD PO; +[UNRECOGNIZED DRUG - OTHER] PT
[2018-09-10 12:10] LABS: Bilirubin, Urine Neg (Neg); Blood, Urine 1+ (Neg); Glucose Qualitative, Urine Neg (Neg); Ketones, Urine Neg (Neg); Leukocyte Esterase, Urine 1+ (Neg); Nitrite, Urine Neg (Neg); Protein, Urine 3+ (Neg); Specific Gravity, Urine 1.015 (1.003-1.022); Urobilinogen, Urine NORM (Normal)
[2018-09-10 12:26] LABS: Appearance, Urine Clear (Clear); Color, Urine Yellow (P-Yellow)
[2018-09-10 12:27] LABS: Bacteria Mod /hpf; Squamous Epithelial Cells Few /hpf (Few)
== END | disposition home or self-care (01) ==
LOC: LAB SHORT 10:26 → LAB 10:26
PROVIDERS: Physician Assistant Medical
DX: R82.90 Unspecified abnormal findings in urine (principal)
CPT/HCPCS: 81001; 87077; 87086; 87186

== ENCOUNTER → 2018-09-24 | Outpatient (CLI) | payer OTHER ==
[2018-09-24 17:19] LABS: Bilirubin, Urine Neg (Neg); Blood, Urine Neg (Neg); Glucose Qualitative, Urine Neg (Neg); Ketones, Urine Neg (Neg); Leukocyte Esterase, Urine 1+ (Neg); Nitrite, Urine Neg (Neg); Protein, Urine 3+ (Neg); Urobilinogen, Urine NORM (Normal)
[2018-09-24 17:41] LABS: Appearance, Urine Hazy (Clear); Color, Urine Yellow (P-Yellow)
[2018-09-24 17:43] LABS: Bacteria Mod /hpf; Red Blood Cells, Urine 0-2 /hpf (0-2); Renal Epithelial Few /hpf (0-Rare); Squamous Epithelial Cells Mod /hpf (Few)
== END | disposition home or self-care (01) ==
LOC: LAB SHORT 16:33 → LAB 16:33
PROVIDERS: Hospitalist
DX: N39.0 Urinary tract infection, site not specified (principal); I12.9 Hypertensive chronic kidney disease with stage 1 through stage 4 chronic kidney disease, or unspecified chronic kidney disease; N18.9 Chronic kidney disease, unspecified; E78.49 Other hyperlipidemia
CPT/HCPCS: 81001; 87077; 87086; 87186

== ENCOUNTER → 2019-01-11 | Outpatient (CLI) | payer OTHER | END | disposition home or self-care (01) | LOC: LAB EV 16:30 → LAB SHORT 16:30 | DX: N95.2 Postmenopausal atrophic vaginitis (principal) | CPT/HCPCS: 87070; 87077; 87186; 87205 ==

== ENCOUNTER → 2019-02-04 | Outpatient (CLI) | payer OTHER | END | disposition home or self-care (01) | LOC: LAB EV 16:00 → LAB SHORT 16:00 | DX: A49.02 Methicillin resistant Staphylococcus aureus infection, unspecified site (principal) | CPT/HCPCS: 87070; 87205 ==

== ENCOUNTER 2019-02-23 11:42 | Day surgery (SDC) | payer OTHER ==
[~2019-02-23 11:42] MED LIST changes: +Amlodipine Besyl5 MG PO; +Anti-Diarrheal2 MG PO; +CHOL10002 PO; +CLOBET30L TOP; +LAMO25 PO; +LINZESS145 MCG PO; +MIRALAX17 GM PO; +POTCHL20ER PO; +TYLENOL LIQUID; +Tylenol325 MG PO; +[UNRECOGNIZED DRUG - OTHER] PO
--- NOTE | 2019-02-23 13:12 | NUR ---
"DAY SURGERY | UNMEASURED VOID VIA BED VILLA."
--- NOTE | 2019-02-23 14:22 | NUR ---
02/23/19 1422 Krupa Rodriguez History, Chart, Medications and Allergies reviewed before start of procedure. 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 SEE ANETHESIC RECORD FOR CARE
--- NOTE | 2019-02-23 15:07 | NUR ---
TSERING FROM SUJEY RUBIN. PT DROWSY, AROUSES TO VOICE. DR PARSONSET IN TO TEACH SON HOW TO USE BUTTON PEG TUBE FOR MEDS AND FEEDING. BILL,SON DEMONSTATED BACK.
--- NOTE | 2019-02-23 15:55 | NUR ---
Discharge instructions reviewed with patient. Patient verbalizes understanding. Copy given to patient to take home. Patient States Post-Procedure ride home has been arranged. Discharged via wheelchair to private car for ride home. USED GAIT BELT WITH ONE STAFF ASSIST TO PUT IN WHEELCHAIR. PT SON ABLE TO LOAD PATIENT IN CAR, STATED SHE WAS BACK TO BASELING ACTIVITY.
== END 2019-02-23 23:11 | disposition home or self-care (01) ==
LOC: ORSCMMR 11:42
PROVIDERS: Student in an Organized Health Care Education/Training Program
PROC: 0DH63UZ Insertion of Feeding Device into Stomach, Percutaneous Approach (ICD-10-PCS; principal; 2019-02-23 07:30)
DX: R13.14 Dysphagia, pharyngoesophageal phase (principal); K94.23 Gastrostomy malfunction; E11.22 Type 2 diabetes mellitus with diabetic chronic kidney disease; I12.9 Hypertensive chronic kidney disease with stage 1 through stage 4 chronic kidney disease, or unspecified chronic kidney disease; N18.9 Chronic kidney disease, unspecified; I50.9 Heart failure, unspecified; G47.33 Obstructive sleep apnea (adult) (pediatric); Z86.73 Personal history of transient ischemic attack (TIA), and cerebral infarction without residual deficits; F03.90 Unspecified dementia, unspecified severity, without behavioral disturbance, psychotic disturbance, mood disturbance, and anxiety; E03.9 Hypothyroidism, unspecified; Z79.899 Other long term (current) drug therapy
CPT/HCPCS: 82947; J2370; J2704; J7120